=== PATIENT | female | born 1960 ===

== ENCOUNTER → 2018-06-28 22:20 | Outpatient (REF) | payer SELFPAY ==
[2018-06-29 00:40] LABS: Glucose 90 mg/dL (70-100)
[2018-06-29 01:02] LABS: Hemoglobin A1C% w Est Avg Glu 5.6 % (4.0-6.0)
[2018-06-30 16:44] LABS: Progesterone 3.1 ng/mL
[2018-07-06 21:44] LABS: Estrogen 88.1 pg/mL
== END ==
LOC: LAB 22:20
PROVIDERS: Visit Provider Naturopath
DX: R73.01 Impaired fasting glucose (principal); N95.1 Menopausal and female climacteric states
CPT/HCPCS: 36415; 82672; 82947; 83036; 84144